=== PATIENT | female | born 1990 | race Asian ===

== ENCOUNTER 2016-12-17 13:01 | Inpatient (IN) | payer OTHER ==
[~2016-12-17] VITALS: Ht 162.6 cm; Wt 104.0 kg
[~2016-12-17 13:01] MED LIST: METO10TA96 PO; PRENAT PO
[2016-12-17 13:21] VITALS: Ht 162.6 cm; Wt 104.0 kg
[2016-12-17] MEDS ORDERED: OXYTOCIN 30 UNITS/LR 500 ML IV PRN ×2 (13:30→20:30)
[2016-12-17] MEDS ORDERED: MISOPROSTOL 200 MCG TAB PR PRN ×2 (13:30→20:30)
[2016-12-17] MEDS ORDERED: CARBOPROST 250 MCG INJ IM PRN ×2 (13:30→20:30)
[2016-12-17] MEDS ORDERED: CEFAZOLIN 2 GM/50 ML (PMX) 50 ML IV SCH (13:30)
[2016-12-17] MEDS ORDERED: METHYLERGONOVINE 0.2 MG INJ IM PRN ×2 (13:30→20:30)
[2016-12-17 14:05] LABS: BASOPHILS % 0.3 % (0.0-2.0); EOSINOPHILS % 0.5 % (0.0-7.0); HEMATOCRIT 31.9 % (37.0-47.0); HEMOGLOBIN 10.4 g/dl (12.0-16.0); LYMPHOCYTES # 1.5 10^3/ul (0.8-2.9); LYMPHOCYTES % 17.4 % (15.0-51.0); MEAN CORPUSCULAR HGB CONC 32.6 g/dl (32.0-37.0); MEAN CORPUSCULAR VOLUME 79.8 fl (82.0-101.0); MEAN PLATELET VOLUME 11.4 fl (7.4-10.4); MONOCYTE # 0.5 10^3/ul (0.3-0.9); NEUTROPHIL # 6.5 10^3/ul (1.6-7.5); NEUTROPHILS % 75.8 % (39.0-77.0); PLATELET COUNT 245 10^3/UL (140-440); RED CELL DISTRIBUTION WIDTH 15.5 % (11.5-14.5); UNCORRECTED WBC 8.6 10^3/ul (4.8-10.8); WHITE BLOOD COUNT 8.6 10^3/ul (4.8-10.8)
[2016-12-17 14:06] LABS: CONDITION 1; LH ANALYZER COMMENTS 1
[2016-12-17 14:11] LABS: INR 0.87; PROTIME 11.8 Sec (12.2-14.2); PT RATIO 0.9
[2016-12-17 14:12] LABS: PARTIAL THROMBOPLASTIN TIME 28.3 Sec (25.0-35.0)
[2016-12-17] MEDS ORDERED: CITRIC ACID/NA CITRATE 30 ML CUP PO ONE (15:30)
[2016-12-17] MEDS ORDERED: ONDANSETRON 4 MG INJ ONE (15:54)
[2016-12-17] MEDS ORDERED: morphine SULFATE/PF (10 MG/10 ML) INJ ONE (15:54)
[2016-12-17] MEDS ORDERED: OXYTOCIN 10 UNIT INJ ONE (15:54)
[2016-12-17] MEDS ORDERED: PHENYLephrine (100 MCG/ML) 5ML SYG ONE ×5 (15:54→17:15)
[2016-12-17] MEDS ORDERED: FENTAnyl 50 MCG/ML VIAL ONE (16:38)
[2016-12-17] MEDS ORDERED: MIDAZOLAM 1 MG/ML 2 ML INJ ONE (16:38)
--- NOTE | 2016-12-17 17:44 | HP ---
Date/Time of Note Date/Time of Note DATE: 12/17/16 TIME: 17:41 OB - History Hx of Present Free Text/Dictation 26 y/o female here admitted for repeat C/S at term Last Menstrual Period: March 18, 2016 Estimated Due Date: Dec 23, 2016 : 2 Para: 1 Care: Good Care Ultrasounds: Normal mid trimester US Obstetrical Complications: None Medical Complications: None Past Family/Social History * Past Medical, Surgical, Family and Obstetric Histories reviewed from chart. Blood Type: O+ Rubella: immune RPR/VDRL: Negative GBS Status: Negative HBsAG: Negative OB Admission Exam Physical Exam HEENT: WNL Heart: Rhythm Normal Lungs: Clear, Equal Abdomen: WNL Extremities: Normal Reflexes: Normal Cervical Dilatation: None Effacement: 0% Station: -3 Membranes: Intact Heart Rate: 130's Accelerations: Accelerations Present Decelerations: No Decelerations Varibility: Moderate Date/Time Contractions Began: 12/17/2016 Frequency of Contractions: q 4 Duration: >1 min Intensity: Moderate Last 72 hours Lab Results CBC & BMP 12/17/16 13:40 OB Assessment/Plan Other Assessment: term gestation previous C/S X 1 Other plan: repeat C/S GAGANDEEP DERAS MD Dec 17, 2016 17:44
--- NOTE | 2016-12-17 17:46 | OPR ---
Operative Report Planned Procedure Procedure date Dec 17, 2016 Procedure(s) repeat C/S Performed by: GAGANDEEP DERAS MD Assisting provider: BELEN REYES MD Anesthesiologist: STEPHANIE RODARTE MD Pre-procedure diagnosis term gestation previous C/S X 1 labor pains Anesthesia Type: spinal Procedure Description Under satisfactory anaesthesia a Pfannenstiel incision was made two fingerbreadth above and parallel to the symphysis of pubis around the previous scar and previous scar was removed Incision was extended laterally to the border of the Recti muscles on either sides. Incision was carried down with sharp and blunt dissection until fascia was reached. Anterior Recti muscle fascia was incised in mid portion and incision extended laterally to the border of skin incision. Fascia was mobilized from muscle superiorly and Recti muscles were from midline using sharp and blunt dissection. Peritoneum was visualized; Avoiding bowel and bladder it was incised . Incision was extended superiorly and inferiorly. Bladder blade was placed. Posterior peritoneum covering the lower segment of the uterus and lower segment of the uterus were incised.Low transverse uterine incision was made on lower segment of the uterus. Incision extended laterally to the border of Round Lig. on either sides and baby was delivered from OT. position . Amniotic fluid appeared clear. Cord blood was obtained and cord had 3 vessels . Placenta was delivered spontaneously and appeared intact and complete. Intrauterine cavity was rubbed with a laparotomy sponge. Uterine incision was closed in 2 layers using running stitches of No1 Monocryl. Hemostasis appeared secure. Ovaries and Fallopian tubes were within normal limits. Announcing needle, lap sponge and instrument count to be correct abdomen was closed in layers as follows: Peritoneum and Recti muscles with running stitches of 20 Vicryl. Fascia with running stitch of No 1 PDS. Subcutaneous tissue with running stitches of 20 Chromic and skin was closed using letty. Patient tolerated the procedure well and was transferred to [facility] in good condition. Post-Procedure Post-procedure diagnosis S/P C/S Findings: Live Baby Specimen removed: No Complications: None Pt Condition post procedure: stable Disposition: PACU Physician Certification I, the undersigned physician, hereby certify that I have discussed the procedure described in this consent form with this patient (or the patient's legal telecommunications sales representative), including: * The risk and benefits of the procedure; * Any adverse reactions that may reasonably be expected to occur; * Any alternative efficacious methods of treatment which may be medically viable ; * The potential problems that may occur during recuperation; * Potential for blood transfusion and associated risks/benefits; and * Any research or economic interest I may have regarding this treatment. I further certify that the patient/legally responsible person was encouraged to ask question and that all questions were answered. GAGANDEEP DERAS MD Dec 17, 2016 17:46
[2016-12-17] MEDS ORDERED: morphine 2 MG INJ IV PRN (18:30)
[2016-12-17] MEDS ORDERED: NALOXONE (0.4 MG/ML) INJ IV PRN (18:30)
[2016-12-17] MEDS ORDERED: DIPHENHYDRAMINE 50 MG INJ IV PRN (18:30)
[2016-12-17] MEDS ORDERED: ONDANSETRON 4 MG INJ IV PRN (18:30)
[2016-12-17] MEDS: KETOROLAC 30 MG INJ IV PRN (20:04)
[2016-12-17] MEDS ORDERED: NA PHOSPHATE/BIPHOS 133 ML ENEMA PR PRN (20:30)
--- NOTE | 2016-12-17 20:35 | DELSUM ---
Delivery Summary A-C Datetime Report Generated by CPN: 12/17/2016 20:35 DELIVERY PERSONNEL Account Services Specialist: Carmela, Deisy MATERNAL INFORMATION Delivery Anesthesia: Spinal Medications in Delivery: SEE FLOW SHEET Estimated Blood Loss (ml): 500 Placenta Cultured: No Maternal Complications: Other Other Maternal Complications: repeat elective LABOR SUMMARY EDC: 12/23/2016 00:00 EDC: 12/20/2016 00:00 No. Babies in Womb: 0 Attempted: No Labor Anesthesia: None LABOR INFORMATION Reason for Induction: Not Applicable Oxytocin: N/A Group B Beta Strep: Positive Antibiotics # of Doses: Ancef 2 grams x1 Antibiotics Time of Last Dose: 1553 Steroids Given: Partial Course Reason Steroids Not Administered: Indication MEMBRANES Membranes Rupture Method: Artificial Rupture of Membranes: 12/17/2016 16:39 Length of Rupture (hr): 0.02 Amniotic Fluid Color: Clear Amniotic Fluid Amount: Small Amniotic Fluid Odor: None STAGES OF LABOR Stage 3 hr: 0 Stage 3 min: 2 CSECTION DELIVERY Primary Indication: Repeat Elective Secondary Indication: Repeat Elective CSection Urgency: Elective CSection Incidence: Repeat Labor: No Labor Elective: Elective CSection Incision: Lower Uterine Transverse BABY A INFORMATION Infant Delivery Date/Time: 12/17/2016 16:40 Method of Delivery: Born in Route : No : N/A Forceps: N/A Vacuum Extraction: N/A Shoulder Dystocia : N/A SHOULDER DYSTOCIA BABY A Infant Delivery Date/Time: 12/17/2016 16:40 PRESENTATION/POSITION BABY A Presentation: Cephalic Cephalic Presentation: Vertex Vertex Position: Left Occipital Anterior Breech Presentation: N/A PLACENTA INFORMATION BABY A Placenta Delivery Time : 12/17/2016 16:42 Placenta Method of Delivery: Manual Removal Placenta Status: Delivered SCORES BABY A Heart Rate 1 min: >100 bpm Resp Effort 1 min: Good Cry Reflex Irritability 1 min: Cough/Sneeze/Pulls Away Muscle Tone 1 min: Active Motion Color 1 min: Blue/Pale Resuscitation Effort 1 min: Tactile Stimulation SCORE 1 MIN: 8 Heart Rate 5 min: >100 bpm Resp Effort 5 min: Good Cry Reflex Irritability 5 min: Cough/Sneeze/Pulls Away Muscle Tone 5 min: Active Motion Color 5 min: Body [place], Extremit Blue Resuscitation Effort 5 min: Tactile Stimulation SCORE 5 MIN: 9 INFORMATION BABY A Gestational Age at Delivery: 39.1 Gestational Status: Full Term- 39- 40.6 Weeks Infant Outcome : Liveborn Infant Condition : Stable Infant Sex: Male IDENTIFICATION/MEDS BABY A ID Band Number: [id number] ID Band Location: Right Leg; Left Arm Sensor Applied: Yes Sensor Number: [id number] Sensor Location : Cord Clamp Vitamin K Given : Not Given Erythromycin Given: Not Given WEIGHT/LENGTH BABY A Infant Birthweight (gm): 3775 Weight (lb): 8 Weight (oz): 5 Infant Length (in): 20.00 Infant Length (cm): 50.80 CORD INFORMATION BABY A No. Cord Vessels: 3 Nuchal Cord : Around Neck x1, Loose Cord Blood Taken: Yes Suction: Mouth; Nose ASSESSMENT BABY A Infant Complications: None Physical Findings at Delivery: Within Normal Limits Infant Respirations: Appears Normal Cage Manager/ALS Called : No Infant Care By: JUDITH MILLER Transferred To: Remains with Mother
[2016-12-17 21:00] VITALS: BP 119/76; PULSE 95; RESP 18
[2016-12-17] MEDS: SENNA/DOCUSATE NA (8.6MG/50MG) TAB PO SCH (21:00)
[2016-12-17] MEDS: CEFAZOLIN 2 GM/50 ML (PMX) 50 ML IV SCH (21:16)
[2016-12-17] MEDS: LACTATED RINGER'S 1,000 ML IV SCH (21:16)
[2016-12-17] MEDS: LANOLIN 7 GM TUBE TOP PRN (21:16)
[2016-12-18 00:01] VITALS: BP 106/76; PULSE 91; RESP 18
[2016-12-18] MEDS: KETOROLAC 30 MG INJ IV PRN ×3 (02:46→15:28)
[2016-12-18 04:00] VITALS: BP 101/54; PULSE 90; RESP 18
[2016-12-18] MEDS: CEFAZOLIN 2 GM/50 ML (PMX) 50 ML IV SCH ×2 (04:08→12:40)
[2016-12-18] MEDS: LACTATED RINGER'S 1,000 ML IV SCH ×3 (05:08→20:17)
[2016-12-18 08:15] VITALS: BP 102/54; PULSE 93; RESP 17
[2016-12-18 08:44] LABS: BASOPHILS % 0.2 % (0.0-2.0); EOSINOPHILS % 0.3 % (0.0-7.0); HEMATOCRIT 26.6 % (37.0-47.0); HEMOGLOBIN 8.6 g/dl (12.0-16.0); LYMPHOCYTES # 1.2 10^3/ul (0.8-2.9); LYMPHOCYTES % 13.4 % (15.0-51.0); MEAN CORPUSCULAR HEMOGLOBIN 26.1 pg (29.0-33.0); MEAN CORPUSCULAR HGB CONC 32.6 g/dl (32.0-37.0); MEAN CORPUSCULAR VOLUME 80.2 fl (82.0-101.0); MEAN PLATELET VOLUME 11.9 fl (7.4-10.4); MONOCYTE # 0.4 10^3/ul (0.3-0.9); MONOCYTES % 4.6 % (0.0-11.0); NEUTROPHILS % 81.5 % (39.0-77.0); PLATELET COUNT 164 10^3/UL (140-440); RED BLOOD COUNT 3.31 10^6/ul (4.20-5.40); RED CELL DISTRIBUTION WIDTH 15.2 % (11.5-14.5); UNCORRECTED WBC 8.6 10^3/ul (4.8-10.8); WHITE BLOOD COUNT 8.6 10^3/ul (4.8-10.8)
[2016-12-18 08:54] LABS: CONDITION 1; LH ANALYZER COMMENTS 1
[2016-12-18] MEDS ORDERED: BISACODYL 10 MG SUPP PR ONE ×2 (09:00→17:52)
[2016-12-18] MEDS: SENNA/DOCUSATE NA (8.6MG/50MG) TAB PO SCH ×3 (09:23→22:05)
--- NOTE | 2016-12-18 11:10 | PN ---
Date/Time of Note Date/Time of Note DATE: 12/18/16 TIME: 11:08 Assessment/Plan VTE Prophylaxis VTE Prophylaxis Intervention: ambulation Lines/Catheters IV Catheter Type (from Nrsg): Peripheral IV Assessment/Plan Assessment/Plan S/P C/S POD # 1 will advance diet and ambulate Subjective 24 Hr Interval Summary No BM Passing flatus Constitutional: BM, ambulates, flatus, improved, no complaints, urine output Pain Control: well controlled Exam/Review of Systems Vital Signs Vitals Vital Signs Date Time Temp Pulse Resp B/P Pulse Ox O2 Delivery O2 Flow Rate FiO2 12/18/16 09:23 96 21 12/18/16 08:15 98.0 93 17 102/54 Room Air Intake and Output 12/17/16 12/17/16 12/18/16 15:00 23:00 07:00 Intake Total 50 ml 1050 ml Output Total 1200 ml 600 ml Balance -1150 ml 450 ml Exam Constitutional: alert, oriented, well developed Psych: nl mood/affect, no complaints Head: atraumatic, normocephalic Eyes: EOMI, nl conjunctiva, nl lids, nl sclera ENMT: mucosa pink and moist, nl external ears & nose, nl lips & teeth, nl nasal mucosa & septum Neck: non-tender, supple Respiratory: clear to auscultation, normal air movement Cardiovascular: nl pulses, regular rate and rhythm Gastrointestinal: nl liver, spleen, non-tender, soft, tender (around the incision ) Genitourinary - Female: uterus (firm ) Musculoskeletal: nl extremities to inspection, nl gait and stance Extremities: normal pulses 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
[2016-12-18 12:00] VITALS: BP 100/50; PULSE 90; RESP 18
[2016-12-18] MEDS: CLINDAMYCIN 300 MG CAP PO SCH ×2 (12:40→17:57)
[2016-12-18 16:13] VITALS: BP 110/58; PULSE 94; RESP 16
[2016-12-18] MEDS ORDERED: ACETAMINOPHEN/CODEINE #3 TAB PO PRN (17:00)
[2016-12-18] MEDS: OXYCODONE/ACETAMINOPHEN (5/325) TAB PO PRN (17:57)
[2016-12-18] MEDS: IBUPROFEN 800 MG TAB PO SCH ×2 (18:40→22:04)
[2016-12-18 20:15] VITALS: BP 117/80; PULSE 104; RESP 18
[2016-12-19] MEDS: CLINDAMYCIN 300 MG CAP PO SCH ×4 (00:45→17:06)
[2016-12-19] MEDS: OXYCODONE/ACETAMINOPHEN (5/325) TAB PO PRN ×3 (01:06→17:06)
[2016-12-19] MEDS: LACTATED RINGER'S 1,000 ML IV SCH ×3 (04:17→20:17)
[2016-12-19 04:30] VITALS: BP 108/56; PULSE 99; RESP 18
[2016-12-19] MEDS: IBUPROFEN 800 MG TAB PO SCH ×3 (06:00→21:49)
[2016-12-19 08:51] VITALS: BP 115/72; PULSE 100; RESP 18
[2016-12-19] MEDS: SENNA/DOCUSATE NA (8.6MG/50MG) TAB PO SCH ×2 (08:51→21:00)
[2016-12-19 16:00] VITALS: BP 111/59; PULSE 99; RESP 18
--- NOTE | 2016-12-19 19:12 | DS ---
Date/Time of Note Date/Time of Note home next day DATE: 12/19/16 TIME: 19:10 Obstetrical Discharge Record Final Diagnosis Final Diagnosis: Term delivered Other Final Diagnosis S/P C/S Section Section: Repeat Condition on Discharge Physical Assessment Last Vitals: see nurses notes Voiding: Yes Bowel Movement: Yes Breast: Soft, non-tender, Filling Fundus: Firm Abdomen and Incision: soft BS + incision healing well Calf Tenderness: No Patient Condition: Good GAGANDEEP DERAS MD Dec 19, 2016 19:12
--- NOTE | 2016-12-19 19:13 | DS ---
Date/Time of Note Date/Time of Note DATE: 12/19/16 TIME: 19:12 Discharge Summary Admission/Discharge Info Admit Date/Time Dec 17, 2016 at 13:01 Discharge Date/Time 12/20/2016 Final Diagnosis S/P repeat C/S Patient Condition: Good Procedures repeat C/S Hx of Present Illness 26 y/o female had repeat C./S Hospital Course uncomplicated Home Meds Reported Medications Metoclopramide Hcl* (Metoclopramide Hcl*) 10 Mg Tablet, 10 MG PO WITH MEALS BEDTIME, TAB 08/18/16 Multivit/Min/Fol Ac/Iron/Pren* ( S*) 1 Tab Tab, 1 TAB PO DAILY, TAB 08/18/16 Follow-up Plan 4 days in clinic for staple removal GAGANDEEP DERAS MD Dec 19, 2016 19:13
--- NOTE | 2016-12-19 19:16 | PD.PPDC ---
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
[2016-12-19] MEDS ORDERED: IBUP800T25 PO (19:18)
[2016-12-19] MEDS ORDERED: Oxycodone/Acetamin (5/325) PO (19:18)
[2016-12-19 19:50] VITALS: BP 99/56; PULSE 96; RESP 18
[2016-12-20] MEDS: CLINDAMYCIN 300 MG CAP PO SCH ×3 (00:14→12:46)
[2016-12-20] MEDS: LANOLIN 7 GM TUBE TOP PRN (01:10)
[2016-12-20] MEDS: OXYCODONE/ACETAMINOPHEN (5/325) TAB PO PRN ×3 (03:46→12:46)
[2016-12-20 04:10] VITALS: BP 104/68; PULSE 98; RESP 18
[2016-12-20] MEDS: LACTATED RINGER'S 1,000 ML IV SCH (04:17)
[2016-12-20] MEDS: IBUPROFEN 800 MG TAB PO SCH (05:36)
[2016-12-20 08:05] VITALS: BP 110/72; PULSE 92; RESP 18
[2016-12-20] MEDS: SENNA/DOCUSATE NA (8.6MG/50MG) TAB PO SCH (08:05)
[2016-12-20] MEDS ORDERED: MEASLES,MUMPS,RUBELLA VACCINE INJ SC* ONE (09:00)
[2016-12-20] MEDS ORDERED: DIPHTH/TET/ACEL PERTUSS (ADULT) 0.5 ML VIAL IM* ONE (09:00)
== END 2016-12-20 15:46 | disposition home or self-care (01) | DRG 766 ==
LOC: L-D 13:01 → PP1 20:44
PROVIDERS: ADMIT Obstetrics & Gynecology; ATTEND Obstetrics & Gynecology
PROC: 10D00Z1 Extraction of Products of Conception, Low, Open Approach (ICD-10-PCS; principal; 2016-12-17 15:30)
DX: O34.211 Maternal care for low transverse scar from previous cesarean delivery (principal); E66.01 Morbid (severe) obesity due to excess calories; O99.824 Streptococcus B carrier state complicating childbirth; O69.81X0 Labor and delivery complicated by cord around neck, without compression, not applicable or unspecified; O99.214 Obesity complicating childbirth; Z68.39 Body mass index [BMI] 39.0-39.9, adult; Z3A.39 39 weeks gestation of pregnancy; Z37.0 Single live birth
CPT/HCPCS: 85025; 85610; 85730; 86592; 86850; 86900; 86901; 90715; 94760; 99464; J0690; J1885; J2250; J2274; J2370; J2405; J2590; J3010; J7120